=== PATIENT | female | born 1960 | race Caucasian/White ===

== ENCOUNTER 2020-09-09 16:04 | Outpatient (CLI) | payer BC, MEDICARE, SELFPAY | END 2020-09-09 16:05 | disposition home or self-care (01) | LOC: ANHCOVIDVC 16:04 | PROVIDERS: PCP Family Medicine; Visit Provider Family Medicine | DX: Z23 Encounter for immunization (principal) | CPT/HCPCS: 0001A; 91300 ==

== ENCOUNTER 2020-09-30 15:57 | Outpatient (CLI) | payer BC, MEDICARE, SELFPAY | END 2020-09-30 15:58 | disposition home or self-care (01) | LOC: ANHCOVIDVC 15:58 | PROVIDERS: PCP Family Medicine; Visit Provider Family Medicine | DX: Z23 Encounter for immunization (principal) | CPT/HCPCS: 0002A; 91300 ==

== ENCOUNTER 2021-09-03 16:13 | Outpatient (CLI) | payer BC, MEDICARE, SELFPAY ==
--- NOTE | ~2021-09-03 | US_ITS ---
EXAMINATION: US renal BI DATE: 09/03/2021 16:59 INDICATION: Stage III B, chronic kidney disease TECHNIQUE: Multiple ultrasound grayscale images of the kidneys were obtained. COMPARISON: None. FINDINGS: The right kidney measures 10.0 x 3.8 x 5.3 cm. The left kidney measures 9.1 x 4.7 x 5.3 cm. The kidne ys demonstrate normal echogenicity. There is no hydronephrosis in either kidney. No stones identifie d. The bladder is normal. IMPRESSION: 1. Normal kidneys without hydronephrosis. Reviewed, dictated and finalized at location A. ER CONSULTANT
== END 2021-09-03 16:14 | disposition home or self-care (01) ==
PROVIDERS: PCP Family Medicine; Visit Provider Internal Medicine Nephrology
DX: N18.32 Chronic kidney disease, stage 3b (principal)
CPT/HCPCS: 76775

== ENCOUNTER 2023-03-10 08:48 | Outpatient (CLI) | payer MEDICARE, SELFPAY ==
[2023-03-10 09:52] LABS: Basophils Percent Auto 0.3 % (0.2-1.2); Eosinophils Absolute Auto 0.1 K/mm3 (0-0.3); Eosinophils Percent Auto 1.8 % (0-4.4); Hematocrit 36.5 % (37.0-47.0); Hemoglobin 11.6 g/dL (12.0-15.0); Immature Granulocyte Absolute 0.02 K/mm3 (0.00-0.031); Immature Granulocyte Percent A 0.3 % (0-0.5); Lymphocytes Absolute Auto 0.87 K/mm3 (0.9-3.2); Lymphocytes Percent Auto 11.2 % (18.3-44.2); Mean Corpuscular HGB Conc 31.8 g/dl (32-36); Mean Corpuscular Hemoglobin 31.4 pg (26-34); Mean Corpuscular Volume 98.6 fl (80-100); Mean Platelet Volume 10.5 fl (7.4-10.4); Monocytes Percent Auto 12.6 % (2.6-8.5); Neutrophils Absolute Auto 5.7 K/mm3 (1.3-6.7); Neutrophils Percent Auto 73.8 % (45.5-73.1); Platelet Count Result 175 k/mm3 (150-375); Red Cell Distribution Width 13.6 % (11.5-14.5); White Blood Count 7.8 K/mm3 (4.5-10.0)
[2023-03-10 10:06] LABS: Alanine Aminotransferase 19 U/L (6-35); Albumin Level 4.4 g/dL (3.5-5.1); Alkaline Phosphatase 68 U/L (38-126); Anion Gap 6 mmol/L (8-16); Aspartate Amino Transferase 28 U/L (14-36); Bilirubin,Total 0.5 mg/dL (0.2-1.3); Blood Urea Nitrogen 14 mg/dL (7-17); Calcium 9.2 mg/dL (8.4-10.2); Carbon Dioxide 32 mmol/L (22-30); Chloride 101 mmol/L (98-107); Cholesterol 189 mg/dL (0-200); Estimated Glomerular Filt Rate 50; Glucose 98 mg/dL (65-110); HDL Direct 60 mg/dL; Sodium 139 mmol/L (137-145); Triglycerides 80 mg/dL (<150)
[2023-03-10 10:17] LABS: LDL Cholesterol Direct 86 mg/dL
[2023-03-10 10:28] LABS: Iron 53 ug/dL (37-170)
[2023-03-10 10:38] LABS: Percent Iron Saturation 14 % (20-50)
[2023-03-10 10:53] LABS: Appearance Urine Clear (Clear); Bacteria Urine None Seen /hpf; Bilirubin Urine Negative (Negative); Blood Urine Negative (Negative); Color Urine Yellow (Yellow); Glucose Urine UA Negative (Negative); Ketones Urine Negative (Negative); Leukocyte Esterase Ur 2+ LEU/UL (NEGATIVE); Need Manual Microscopic Reviewed; Nitrate Urine Negative (Negative); Non Pathogenic Casts 0-2; Protein Urine Negative (Negative); RBC Urine 0-2 /hpf (0-2); Specific Grav Ur 1.007 (1.001-1.035); Squamous Epithelial Cell Urine None seen /hpf (Few); Urobilinogen Urine 0.2 mg/dL (<2.0); WBC Urine 0-5 /hpf (0-3); pH Urine 6.5 (5.0-9.0)
[2023-03-10 10:57] LABS: Add Urine Microscopic? YES
[2023-03-10 11:14] LABS: Folic Acid > 20.0 ng/mL (2.76->20); Free T4 Free Thyroxine 1.29 ng/mL (0.78-2.19)
== END 2023-03-10 08:49 | disposition home or self-care (01) ==
PROVIDERS: PCP Family Medicine; Visit Provider Family Medicine
DX: N18.9 Chronic kidney disease, unspecified (principal); D63.1 Anemia in chronic kidney disease; E03.9 Hypothyroidism, unspecified; E78.2 Mixed hyperlipidemia; I10 Essential (primary) hypertension
CPT/HCPCS: 36415; 80053; 80061; 81001; 82607; 82728; 82746; 83540; 83550; 84439; 84443; 85025

== ENCOUNTER 2023-09-11 02:01 | Inpatient (IN) | payer MEDICARE, SELFPAY ==
[2023-09-11] VITALS (82 sets, daily range): BP systolic 93–156; BP diastolic 54–105; PULSE 59–129; RESP 15–31; TEMP 36.2–37.2; O2SAT 79–100; BMI 41.1; BMI 41.3
--- NOTE | ~2023-09-11 | XR_ITS ---
Portable chest x-ray Comparison: 02/07/2019 Clinical History: Dyspnea Findings: There is extensive groundglass pulmonary disease, with relative sparing of the lung apices . No definite pleural effusion. Cardiomediastinal silhouette is stable, enlarged. Bones and soft tis sues are unremarkable. Impression: Extensive groundglass pulmonary disease. Correlate for infection or pulmonary edema. Stable cardiomegaly, status post probable CABG. Reviewed, dictated and finalized at location . Impression: Extensive groundglass pulmonary disease. Correlate for infection or pulmonary e eduardo. Stable cardiomegaly, status post probable CABG.
--- NOTE | ~2023-09-11 | CT_ITS ---
Clinical Indication: Dyspnea CT Scan of the Chest with Contrast: Technique: Contiguous sections were acquired throughout the chest after intravenous administration of 100 cc of Omnipaque 350. Dose reduction technique was used on this scan by utilizing automated expos ure control and iterative reconstruction technique. The dose-length product (DLP) was 1062.98 mGy-cm. Findings: There is no evidence of any significant mediastinal, hilar or axillary lymphadenopathy. There is no f illing defect in the pulmonary arterial tree to suggest pulmonary embolus. There is no evidence of ao rtic dissection or aneurysm. There is cardiomegaly, with left atrial enlargement. No pericardial effusion. Minimal bilateral pleural effusions are present. There is extensive bilateral pulmonary consolidation, throughout both lungs, with relative sparing of the apices. Images through the upper abdomen reveal small nonobstructing left renal stones. Impression: No evidence of pulmonary embolus, aortic dissection, or aortic aneurysm. Extensive bilateral pulmonary consolidation. Correlate for severe pulmonary edema, diffuse pneumonia, ARDS. Minimal bilateral pleural effusions. Cardiomegaly. Reviewed, dictated and finalized at location . Impression: No evidence of pulmonary embolus, aortic dissection, or aortic aneurysm. Extensive bilateral pulmonary consolidation. Correlate for severe pulmonary bernadine ma, diffuse pneumonia, ARDS. Minimal bilateral pleural effusions. Cardiomegaly.
--- NOTE | 2023-09-11 02:16 | ECG_ITS ---
Measurements Intervals [place] Rate: 105 P: UT: 0 QRS: -11 QRSD: 110 T: 146 QT: 334 QTc: 442 Interpretive Statements ATRIAL FIBRILLATION WITH RAPID VENTRICULAR RESPONSE BORDERLINE R WAVE PROGRESSION, ANTERIOR LEADS LEFT VENTRICULAR HYPERTROPHY WITH ST-T CHANGE BORDERLINE T WAVE ABNORMALITY- LATERAL LEADS BASELINE ARTIFACT- I, II, III, AVR, AVL, AVF ABNORMAL ECG NO PREVIOUS ECG AVAILABLE FOR COMPARISON Electronically Signed On 09-11-2023 6:38:46 CDT by Hiren Ross D.O.
[2023-09-11 02:31] LABS: Basophils Percent Auto 0.2 % (0.2-1.2); Eosinophils Absolute Auto 0.1 K/mm3 (0-0.3); Eosinophils Percent Auto 0.3 % (0-4.4); Hematocrit 34.8 % (37.0-47.0); Hemoglobin 10.9 g/dL (12.0-15.0); Immature Granulocyte Absolute 0.07 K/mm3 (0.00-0.031); Immature Granulocyte Percent A 0.5 % (0-0.5); Lymphocytes Absolute Auto 0.98 K/mm3 (0.9-3.2); Lymphocytes Percent Auto 6.3 % (18.3-44.2); Mean Corpuscular HGB Conc 31.3 g/dl (32-36); Mean Corpuscular Hemoglobin 29.7 pg (26-34); Mean Corpuscular Volume 94.8 fl (80-100); Mean Platelet Volume 10.9 fl (7.4-10.4); Monocytes Absolute Auto 1.4 K/mm3 (0.1-0.6); Monocytes Percent Auto 9.2 % (2.6-8.5); Neutrophils Percent Auto 83.5 % (45.5-73.1); Platelet Count Result 206 k/mm3 (150-375); Red Blood Count 3.67 M/mm3 (4.2-5.4); Red Cell Distribution Width 14.4 % (11.5-14.5); White Blood Count 15.5 K/mm3 (4.5-10.0)
[2023-09-11 02:42] LABS: INR 1.8; Prothrombin Time 22.4 Seconds (11.1-14.7)
[2023-09-11 02:43] LABS: Partial Thromboplastin Time 49.3 Seconds (22.3-36.8)
[2023-09-11 02:46] LABS: Alveolar/Arterial O2 Gradient 150.3 mmHg; Base Excess ABG 0.4 mEq/l (+/-2.0); Fractional Inspired Oxygen 36 %; HCO3 ABG 24.8 mEq/l (22.0-26.0); Oxygen Content ABG 14.5 %vol (16.0-22.0); Oxygen Saturation ABG 91.9 % (95.0-100.0); Oxyhemoglobin 88.7 % THb (90.0-100.0); PCO2 ABG 39.1 mmHg (35.0-45.0); PO2 FiO2 Ratio Arterial Blood 1.69 %; Total Hemoglobin 11.6 g/dL (12.0-18.0)
[2023-09-11 02:46] LABS: Alanine Aminotransferase 19 U/L (6-35); Albumin Level 3.5 g/dL (3.5-5.1); Alkaline Phosphatase 61 U/L (38-126); Anion Gap 8 mmol/L (8-16); Aspartate Amino Transferase 35 U/L (14-36); Bilirubin,Total 0.7 mg/dL (0.2-1.3); Blood Urea Nitrogen 27 mg/dL (7-17); Calcium 7.9 mg/dL (8.4-10.2); Carbon Dioxide 24 mmol/L (22-30); Chloride 109 mmol/L (98-107); Estimated CRCL calculation 38 ml/min; Estimated Glomerular Filt Rate 33; Glucose 122 mg/dL (65-110); Potassium 3.8 mmol/L (3.4-5.0); Sodium 141 mmol/L (137-145)
[2023-09-11 02:47] LABS: Lactic Acid Reflex 1.8 mmol/L (0.7-2.0); Lipase 46 U/L (23-300); Magnesium 1.6 mg/dL (1.6-2.3)
[2023-09-11 02:47] LABS: Device NASAL CANNULA; Modified Allen's Test Pass; Site Drawn RIGHT RADIAL
--- NOTE | 2023-09-11 02:50 | PC.NURSE ---
Unable to get accurate O2 saturation with finger pulse ox, forehead pulse ox, and ear lobe pulse ox. Respiratory stated pt O2 from blood gas was 91%. Respiratory placing pt on high flow nasal cannula at 8L.
[2023-09-11 02:55] LABS: NT Pro B Type Natriuretic Pept 6060 pg/mL (19.9-100)
[2023-09-11 02:59] LABS: Troponin I 0.015 ng/mL (0.000-0.034)
[2023-09-11 03:07] LABS: Influenza A QL RT-PCR Negative (Negative); Influenza B QL RT-PCR Negative (Negative); RSV RNA, RT-PCR Negative (Negative); SARS-CoV-2 RNA PCR Negative (Negative)
--- NOTE | 2023-09-11 04:10 | ED.GENADULT ---
HPI - General Adult General Chief complaint: Arrhythmia/Palpitations Stated complaint: SOB, PALPITATIONS History of Present Illness HPI narrative: Patient is a 63-year-old female who presents emergency department chief complaint of shortness of breath and palpitations. Patient reports she has intermittent episodes of atrial fibrillation report in the past is currently on anticoagulant and reports that today she was at the grocery store and felt very lightheaded and short of breath patient states she sat down in her car and symptoms improved. The patient went home and continued to have episodes of shortness of breath and lightheadedness. The patient reports no actual syncopal episode the patient reports she is not on home oxygen. Related Data Allergies Allergy/AdvReac Type Severity Reaction Status Date / Time No Known Allergies Allergy Verified 04/13/23 13:20 Review of Systems Review of Systems: A 10 system review of systems was completed on the patient and is negative except for what is stated in the HPI. Nursing and ancillary documentation was reviewed. [facility] Past Medical History Medical History Acute non-recurrent maxillary sinusitis Anemia in chronic kidney disease hemoglobin 11.0 with iron 52, folic acid 24, and vitamin B12 520 on 08/02/2021. Hemoglobin 11.6 with hematocrit 36.5, iron 53 with 14% saturation and ferritin 34.6 with vitamin B12 823 and folic acid greater than 20 on 03/10/2023. At moderate risk for fall (~2022) Breast cancer screening by mammogram Chronic kidney disease (CKD) stage G3b/A1, moderately decreased glomerular filtration rate (GFR) between 30-44 mL/min/1.73 square meter and albuminuria creatinine ratio less than 30 mg/g BUN 14, creatinine 1.10 with GFR 50 on 03/10/2023. Colon cancer screening Cutaneous candidiasis Inflamed skin tag (~12/09/21) right upper anterior chest under brawl strap Left knee DJD Mitral valve regurgitation (~01/2022) moderate mitral valve regurgitation on echocardiogram 2021 through medical radiation therapist with plans to recheck annually. Morbid obesity with BMI of 40.0-44.9, adult Obstructive sleep apnea Paroxysmal atrial fibrillation Psoriasis of scalp Right knee DJD Seasonal allergic rhinitis UTI (urinary tract infection) Surgical History Surgical History H/O arthroscopy of right knee [address] Sellers History of partial hysterectomy [address] Varma History of tonsillectomy [address] Waters Hx of section 1988 S/P angioplasty with stent [address] Gonsales S/P triple vessel bypass [address] 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 HEAD: Normocephalic, atraumatic. EYES: PERRLA and EOMI. ENT: Nares clear, no rhinorrhea or epistaxis. Mucous membranes moist. NECK: Supple. CHEST: Clear to auscultation. No respiratory distress. HEART: Regular rate and rhythm. No murmur heard. Normal peripheral pulses. ABDOMEN: Soft, nontender, nondistended, normal active bowel sounds. EXTREMITIES: Normal range of motion. No edema. SKIN: Warm, dry, no rash. JOE
[2023-09-11] MEDS: methylPREDNISolone SOD SUCC 125 MG VIAL IV PUSH (05:18)
[2023-09-11 05:28] LABS: Appearance Urine Clear (Clear); Bacteria Urine None Seen /hpf; Bilirubin Urine Negative (Negative); Blood Urine Negative (Negative); Color Urine Yellow (Yellow); Glucose Urine UA Negative (Negative); Ketones Urine Negative (Negative); Leukocyte Esterase Ur Trace LEU/UL (Negative); Nitrate Urine Negative (Negative); Non Pathogenic Casts 0-2; Protein Urine 1+ mg/dL (Negative); RBC Urine 0-2 /hpf (0-2); Squamous Epithelial Cell Urine None Seen /hpf (Few); pH Urine 5.5 (5.0-9.0)
[2023-09-11 05:30] LABS: Add Urine Microscopic? YES
[2023-09-11] MEDS: FUROSEMIDE INJ 40 MG/4 ML VIAL IV PUSH ×2 (05:36→18:13)
[2023-09-11] MEDS: dilTIAZem HCl INJ 25 MG/5 ML VIAL 10 MG IV PUSH (05:36)
[2023-09-11] MEDS: HYDROcodone/acetaminophen (*CRX) 5-325 MG TABLET 1 TAB PO (05:36)
[2023-09-11] MEDS: DOXYCYCLINE 100 MG/NS 100 ML 100 MG/100 ML BAG IVPB ×2 (05:55→18:50)
[2023-09-11 06:31] LABS: Troponin I 0.023 ng/mL (0.000-0.034)
--- NOTE | 2023-09-11 07:15 | PC.NURSE ---
Report given to AMOS Huizar with no questions at this time.
[2023-09-11 10:41] LABS: Troponin I 0.024 ng/mL (0.000-0.034)
--- NOTE | 2023-09-11 11:34 | PM.IMHP ---
H&P: HPI History of Present Illness Date/Time: 09/11/23 11:34 Chief Complaint: Patient brought to the ER for evaluation with complaints shortness of breath and palpitations Narrative: She has the pleasant morbidly obese 63 years old white female with the AFib and chronic medical issues who has had intermittent episodes of atrial fibrillation in the past. She is currently on anticoagulation for AFib. Diagnosis store and felt dizzy and lightheaded and shortness of breath so she sat down in her car and symptoms improved. She went home and continued to have those symptoms which got worse. Her and her got concerned and brought her to the ER for evaluation. Workup was done which showed AFib with RVR with patient was given IV diltiazem push and her heart rate stabilized. She was started on IV and being admitted for tele monitoring, IV antibiotics and medical management and further workup. Review of Systems Review of Systems: 14 systems were reviewed with pertinent positives and negatives per HPI. Except as documented in the HPI/progress notes, all other systems were reviewed and are negative. All systems reviewed & are unremarkable except as noted in HPI and below PMFSH Past Medical History Medical History Acute non-recurrent maxillary sinusitis Anemia in chronic kidney disease hemoglobin 11.0 with iron 52, folic acid 24, and vitamin B12 520 on 08/02/2021. Hemoglobin 11.6 with hematocrit 36.5, iron 53 with 14% saturation and ferritin 34.6 with vitamin B12 823 and folic acid greater than 20 on 03/10/2023. At moderate risk for fall (~2022) Breast cancer screening by mammogram Chronic kidney disease (CKD) stage G3b/A1, moderately decreased glomerular filtration rate (GFR) between 30-44 mL/min/1.73 square meter and albuminuria creatinine ratio less than 30 mg/g BUN 14, creatinine 1.10 with GFR 50 on 03/10/2023. Colon cancer screening Cutaneous candidiasis Inflamed skin tag (~12/09/21) right upper anterior chest under brawl strap Left knee DJD Mitral valve regurgitation (~01/2022) moderate mitral valve regurgitation on echocardiogram 2021 through electrician maintenance with plans to recheck annually. Morbid obesity with BMI of 40.0-44.9, adult Obstructive sleep apnea Paroxysmal atrial fibrillation Psoriasis of scalp Right knee DJD Seasonal allergic rhinitis UTI (urinary tract infection) Surgical History Surgical History H/O arthroscopy of right knee [address] Sellers History of partial hysterectomy [address] Varma History of tonsillectomy [address] Waters Hx of section 1988 S/P angioplasty with stent [address] Gonsales S/P triple vessel bypass [address] 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
[2023-09-11 12:33] LABS: Iron 43 ug/dL (37-170)
[2023-09-11 12:42] LABS: Percent Iron Saturation 14 % (20-50)
[2023-09-11] MEDS: methylPREDNISolone SOD SUCC 125 MG VIAL 60 MG IV PUSH ×2 (14:45→22:21)
[2023-09-11] MEDS: IRON SUCROSE COMPLEX 300 MG in SODIUM CHLORIDE 0.9% IV 250 ML 177 MG IVPB (16:32)
[2023-09-11] MEDS: RIVAROXABAN 20 MG TABLET PO (18:05)
[2023-09-11] MEDS: oxyCODONE/ACETAMINOPHEN (*CRX) 5-325 MG TABLET 1 TABLET PO (19:55)
[2023-09-11] MEDS: oxyCODONE HCL (*CRX) 2.5 MG TAB IR PO (19:55)
--- NOTE | 2023-09-11 21:08 | ADMGEN ---
This patient, Danelle Sommers, was admitted to IMU Room 210-01. Patient/family oriented to hospital policies and general routines including ID bracelet, bed and alarms, visiting hours, pain management, procedures, bathroom and other care routines, personal items, smoking policy, room service/diet, and visiting hours. Information on how to activate the Rapid Response Team has been discussed. Patient/Family are encouraged to report perceived risks to care and to ask questions if they do not understand what they are told or what they should do.
[2023-09-11] MEDS: FLUTICASONE PROPIONATE 0.05% NA SPR 16 GM BTL (*BKC) 1 SPRAY NASAL (22:21)
[2023-09-11] MEDS: SACUBITRIL/VALSARTAN 97-103 MG TABLET 1 TAB PO (22:21)
[2023-09-11] MEDS: carvediloL 12.5 MG TABLET PO (22:22)
[2023-09-11] MEDS: FLUTICASONE/SALMETEROL 115-21 MCG INHALER 1 PUFF 2 PUFF INHALATION (22:25)
[2023-09-12] VITALS (26 sets, daily range): BP systolic 97–112; BP diastolic 53–62; PULSE 63–106; RESP 13–22; TEMP 35.6–36.9; O2SAT 88–98
[2023-09-12] MEDS: ZOLPIDEM TARTRATE (*CRX) 5 MG TABLET 10 MG PO ×2 (00:17→22:15)
[2023-09-12] MEDS: methylPREDNISolone SOD SUCC 125 MG VIAL 60 MG IV PUSH ×3 (05:03→20:54)
[2023-09-12] MEDS: FUROSEMIDE INJ 40 MG/4 ML VIAL IV PUSH ×2 (05:03→17:12)
[2023-09-12] MEDS: DOXYCYCLINE 100 MG/NS 100 ML 100 MG/100 ML BAG IVPB ×2 (05:04→17:12)
[2023-09-12] MEDS: LEVOTHYROXINE SODIUM 88 MCG TABLET PO (05:04)
[2023-09-12 05:08] LABS: Basophils Percent Auto 0.1 % (0.2-1.2); Hematocrit 30.1 % (37.0-47.0); Hemoglobin 9.5 g/dL (12.0-15.0); Immature Granulocyte Absolute 0.19 K/mm3 (0.00-0.031); Immature Granulocyte Percent A 1.7 % (0-0.5); Lymphocytes Absolute Auto 0.38 K/mm3 (0.9-3.2); Lymphocytes Percent Auto 3.4 % (18.3-44.2); Mean Corpuscular HGB Conc 31.6 g/dl (32-36); Mean Corpuscular Hemoglobin 29.8 pg (26-34); Mean Corpuscular Volume 94.4 fl (80-100); Mean Platelet Volume 10.9 fl (7.4-10.4); Monocytes Absolute Auto 0.3 K/mm3 (0.1-0.6); Monocytes Percent Auto 2.2 % (2.6-8.5); Neutrophils Absolute Auto 10.3 K/mm3 (1.3-6.7); Neutrophils Percent Auto 92.6 % (45.5-73.1); Platelet Count Result 158 k/mm3 (150-375); Red Blood Count 3.19 M/mm3 (4.2-5.4); Red Cell Distribution Width 14.2 % (11.5-14.5); White Blood Count 11.1 K/mm3 (4.5-10.0)
[2023-09-12 05:32] LABS: Anion Gap 5 mmol/L (8-16); Blood Urea Nitrogen 32 mg/dL (7-17); Carbon Dioxide 29 mmol/L (22-30); Chloride 103 mmol/L (98-107); Estimated CRCL calculation 47 ml/min; Estimated Glomerular Filt Rate 42; Glucose 146 mg/dL (65-110); Magnesium 1.7 mg/dL (1.6-2.3); Phosphorus 3.1 mg/dL (2.5-4.5); Potassium 4.1 mmol/L (3.4-5.0); Sodium 137 mmol/L (137-145)
[2023-09-12] MEDS: oxyCODONE/ACETAMINOPHEN (*CRX) 5-325 MG TABLET 1 TABLET PO ×3 (05:49→23:47)
[2023-09-12] MEDS: oxyCODONE HCL (*CRX) 2.5 MG TAB IR PO ×3 (05:50→23:47)
--- NOTE | 2023-09-12 06:00 | ECHO_ITS ---
Patient Info Name: Danelle Sommers Age: 63 years : 1960 Gender: Female Ht: 63 in Wt: 233 lbs BSA: 2.22 m2 HR: 64 bpm BP: 105 / 62 mmHg Heart Rhythm: Sinus Rhythm Technical Quality: Fair Exam Date: 09/12/2023 7:43 AM Exam Location: Echo Lab Patient Status: Inpatient Admit Date: 09/11/2023 Staff Ordering Physician: Kemar Braga MD Kiln Placer: Mily England RDCS Attending Provider: Jesse Carey MD Referring Physician: Omi LINK; Exam Type: CA echo dop color flow w con Study Info Indications - CHF R06.00 - Dyspnea, unspecified Complete two-dimensional, color flow and Doppler transthoracic echocardiogram is performed with contrast to opacify the left ventricle and to improve the deliniation of the left ventricle endocardial borders. Contrast/Agitated Saline Contrast/Ag. Saline: Definity Amount: 2.00 ml Administered By: Mily England RDCS Existing IV Access: Yes IV Access Condition: patent with no signs of infiltration Summary 1. Left ventricular chamber dimension is severely enlarged. 2. Left ventricular systolic function is at lower limits of normal, estimated at 50-55%. 3. Right ventricular systolic function is normal. 4. Left atrial chamber dimension is severely enlarged. 5. Right atrial chamber dimension is severely enlarged. 6. There is mild aortic valve regurgitation. 7. There is moderate mitral valve regurgitation. 8. There is moderate tricuspid valve regurgitation, which may be underestimated due to the eccentricity of the jet. Left Ventricle Left ventricular chamber dimension is severely enlarged. Left ventricular systolic function is at lower limits of normal, estimated at 50-55%. There is no increased left ventricular wall thickness. Left ventricular septal wall motion is abnormal with septal motion related to a post-operative state. Right Ventricle Right ventricular chamber dimension is normal. Right ventricular systolic function is normal. Left Atria Left atrial chamber dimension is severely enlarged. Right Atria Right atrial chamber dimension is severely enlarged. Atrial Septum Intact interatrial septum visualized by color flow imaging. Aortic Valve The aortic valve is probable trileaflet. There is no aortic valve stenosis. There is mild aortic valve regurgitation. There is moderate aortic valve calcification. Pulmonic Valve The pulmonic valve is not well visualized. There is trace pulmonic regurgitation. Mitral Valve There is moderate mitral valve regurgitation. The mitral valve annulus is moderately calcified. Tricuspid Valve There is moderate tricuspid valve regurgitation, which may be underestimated due to the eccentricity of the jet. Pericardium/Pleural There is no pericardial effusion. Inferior Vena Cava Normal inferior vena cava with >50% collapse upon inspiration consistent with normal right atrial pressure, 3 mmHg. Aorta The aortic root size at the sinus of Valsalva is normal. Left Ventricular Outflow Tract Name Value Normal LVOT 2D LVOT Diameter 2.06 cm LVOT Doppler LVOT Peak Gradient 2 mmHg LVOT Mean Gradient
[2023-09-12] MEDS: PERFLUTREN LIPID MICROSPHERES 1.5 ML VIAL DILUTED TO 10 ML TOTAL VOLUME IV PUSH (08:15)
[2023-09-12] MEDS: FLUTICASONE/SALMETEROL 115-21 MCG INHALER 1 PUFF 2 PUFF INHALATION ×2 (08:49→21:05)
[2023-09-12] MEDS: IRON SUCROSE COMPLEX 300 MG in SODIUM CHLORIDE 0.9% IV 250 ML 177 MG IVPB (09:03)
[2023-09-12] MEDS: POTASSIUM CHLORIDE 20 MEQ ER TABLET PO (09:03)
[2023-09-12] MEDS: SPIRONOLACTONE 25 MG TABLET PO (09:03)
[2023-09-12] MEDS: MULTIVITAMINS THERAPEUTIC TAB (*BKC) 1 TABLET PO (09:03)
[2023-09-12] MEDS: carvediloL 12.5 MG TABLET PO ×2 (09:03→20:53)
[2023-09-12] MEDS: CHOLECALCIFEROL 1,000 UNITS TABLET 1000 UNITS PO (09:04)
[2023-09-12] MEDS: ESCITALOPRAM OXALATE 10 MG TABLET PO (09:04)
[2023-09-12] MEDS: ATORVASTATIN 40 MG TABLET 80 MG PO (09:04)
[2023-09-12] MEDS: AMIODARONE HCL 200 MG TABLET PO (09:04)
[2023-09-12] MEDS: SACUBITRIL/VALSARTAN 97-103 MG TABLET 1 TAB PO ×2 (09:04→20:53)
[2023-09-12] MEDS: CYANOCOBALAMIN 1,000 MCG TABLET 1000 MCG PO (09:04)
[2023-09-12] MEDS: LORATADINE 10 MG TABLET PO (09:04)
--- NOTE | 2023-09-12 09:15 | IVDEFINITY ---
Prior to administration of IV Definity the patient was educated on the risks and benefits of the imaging enhancing agent including potential adverse side effects. The patient verbalized understanding. Allergies were verified. No exclusion criteria were identified and at least one of the following inclusion criteria were met: 1) physician request, 2) patient technically difficult to image (per the [place] Society of Echocardiography guidelines of two or more segments not discernable within the apical view), or 3) questionable left ventricular function. ?
--- NOTE | 2023-09-12 14:30 | PM.IMPN ---
Progress Note: A&P Assessment and Plan (1) Acute and chronic respiratory failure with hypoxia: Code(s): J96.21 - Acute and chronic respiratory failure with hypoxia Status: Acute (2) Pneumonia: Code(s): J18.9 - Pneumonia, unspecified organism Status: Acute Plan 63-year-old female with past medical history of atrial fibrillation presented with worsening shortness of breaths. Was found to be in AFib with RVR. 1. Acute on chronic respiratory failure: Continue with O2 support Follow blood cultures Continue with ceftriaxone and doxycycline Continue with Lasix Continue with Solu-Medrol Follow-up echocardiogram 2. AFib with RVR: Continue with amiodarone, Coreg Continue with Xarelto 3. Chronic kidney disease: Stage IIIB Avoid nephrotoxins Recheck BMP in a.m. 4.Anemia of Chronic disease: IV iron for 3 days monitor H/H 5. Code status: Full 6. DVT prophylaxis: On Xarelto next 7. Disposition: Pending improvement Time Spent With Patient Time with patient: 15 - 25 minutes Subjective Date/time seen: 09/12/23 14:30 Interval history: Continues to be on O2 support Review of Systems Review of Systems: 14 systems were reviewed with pertinent positives and negatives per HPI. Except as documented in the HPI/progress notes, all other systems were reviewed and are negative. Exam Narrative: General physical exam: Morbidly obese, lying in bed, alert awake oriented x3, appears to be tired, weak and fatigued with some shortness of breath Head/eyes: Atraumatic, EOMI, PERRLA ENT: Moist mucous membranes, nasal passages clear Neck: Supple, full range of motion, trachea midline CVS: S1 + S2, irregularly irregular rate and rhythm, no murmurs Respiratory: Bilaterally decreased air entry in both lung mina, mild B/L crackles, symmetric chest expansion, + bilateral scattered rhonchi Abdomen: Soft, non-tender, bowel sounds +ve, no organomegaly Extremities: No clubbing, no cyanosis, no edema, no calf tenderness Musculoskeletal: Moves all, decreased range of motion, no muscle spasms Skin: Warm, dry, no jaundice, no cyanosis Neurological: Awake, alert, oriented x 3, cranial nerves II-XII intact, no focal neurological deficits Psychiatric: Normal mood, non suicidal Objective Data Vital Signs Vital Signs: Vital Signs - 24 hr 09/11/23 14:34 09/11/23 14:45 09/11/23 14:46 Temperature Pulse Rate 66 66 62 Respiratory Rate 17 18 20 Blood Pressure 128/64 Pulse Oximetry 99 99 99 Oxygen Delivery Oxygen Flow Rate 09/11/23 15:01 09/11/23 15:23 09/11/23 15:30 Temperature Pulse Rate 62 60 59 L Respiratory Rate 17 16 17 Blood Pressure 102/64 102/63 Pulse Oximetry 98 99 99 Oxygen Delivery Oxygen Flow Rate 09/11/23 15:31 09/11/23 18:07 09/11/23 19:33 Temperature Pulse Rate 60 73 70 Respiratory Rate 16 16 20 Blood Pressure 108/66 111/64 Pulse Oximetry 95 95 Oxygen Delivery Oxygen Flow Rate 09/11/23 21:05 09/11/23 22:22 09/11/23 22:25 Temperature 97.1 F L Pulse Rate 79 84 85 Respiratory Rate 20 16 Blood Pressure 113/69 Pulse Oximetry 100 100 Oxygen Delivery Nasal Cannula Oxygen Flow Rate 4 09/11/23 21:30 09/11/23 21:00 09/11/23 22:00 Temperature Pulse Rate 68 67 66 Respiratory Rate 22 H Blood Pressure Pulse Oximetry 100 Oxygen Delivery High Flow Therapy with Na Oxygen Flow Rate 4 09/11/23 23:33 09/12/23 00:00 09/12/23 00:00 Temperature 97.3 F L Pulse Rate 62 78 78 Respiratory Rate 20 20 Blood Pressure 94/57 L Pulse Oximetry 97 97 Oxygen Delivery High Flow Therapy with Na Oxygen Flow Rate 4 09/12/23 03:49 09/12/23 02:00 09/12/23 04:00 Temperature 97.1 F L Pulse Rate 64 68 68 Respiratory Rate 18 Blood Pressure 105/62 Pulse Oximetry 97 Oxygen Delivery Oxygen Flow Rate 09/12/23 04:00 09/12/23 05:25 09/12/23 07:41 Temperature 98.5 F Pulse Rate 68 64 74 Respiratory R
[2023-09-12] MEDS: RIVAROXABAN 20 MG TABLET PO (17:11)
--- NOTE | 2023-09-12 18:10 | PC.NURSE ---
This patient, Danelle Sommers, was transferred to [ [facility]] on 09/12/23 at 1810. Personal belongings sent with patient. Report given to [AMOS Galarza @ [phone] ]. Appropriate documentation sent with patient.
--- NOTE | 2023-09-12 18:28 | PC.NURSE ---
This patient, Danelle Sommers, was received from [IMU] on 09/12/23 at 1820 Patient/family oriented to unit policies and routines. Report from Carmen
[2023-09-13] VITALS (14 sets, daily range): BP systolic 100–103; BP diastolic 40–55; PULSE 64–84; RESP 14–18; TEMP 35.7–36.7; O2SAT 92–94
[2023-09-13] MEDS: methylPREDNISolone SOD SUCC 125 MG VIAL 60 MG IV PUSH ×3 (05:44→22:06)
[2023-09-13] MEDS: LEVOTHYROXINE SODIUM 88 MCG TABLET PO (05:44)
[2023-09-13] MEDS: DOXYCYCLINE 100 MG/NS 100 ML 100 MG/100 ML BAG IVPB ×2 (05:45→17:15)
[2023-09-13] MEDS: FUROSEMIDE INJ 40 MG/4 ML VIAL IV PUSH ×2 (06:45→16:00)
[2023-09-13 07:28] LABS: Basophils Percent Auto 0.1 % (0.2-1.2); Hematocrit 32.6 % (37.0-47.0); Hemoglobin 10.2 g/dL (12.0-15.0); Immature Granulocyte Absolute 0.18 K/mm3 (0.00-0.031); Immature Granulocyte Percent A 1.3 % (0-0.5); Lymphocytes Absolute Auto 0.33 K/mm3 (0.9-3.2); Lymphocytes Percent Auto 2.4 % (18.3-44.2); Mean Corpuscular HGB Conc 31.3 g/dl (32-36); Mean Corpuscular Hemoglobin 29.7 pg (26-34); Mean Platelet Volume 10.7 fl (7.4-10.4); Monocytes Absolute Auto 0.3 K/mm3 (0.1-0.6); Monocytes Percent Auto 2.1 % (2.6-8.5); Neutrophils Absolute Auto 12.7 K/mm3 (1.3-6.7); Neutrophils Percent Auto 94.1 % (45.5-73.1); Nucleated Red Blood Cells Perc 0.1 % (0.0-0.2); Platelet Count Result 199 k/mm3 (150-375); Red Blood Count 3.43 M/mm3 (4.2-5.4); Red Cell Distribution Width 14.5 % (11.5-14.5); White Blood Count 13.5 K/mm3 (4.5-10.0)
[2023-09-13] MEDS: FLUTICASONE/SALMETEROL 115-21 MCG INHALER 1 PUFF 2 PUFF INHALATION ×2 (07:36→19:55)
[2023-09-13] MEDS: oxyCODONE/ACETAMINOPHEN (*CRX) 5-325 MG TABLET 1 TABLET PO ×3 (07:38→22:51)
[2023-09-13] MEDS: oxyCODONE HCL (*CRX) 2.5 MG TAB IR PO ×2 (07:39→15:57)
[2023-09-13 07:47] LABS: Anion Gap 6 mmol/L (8-16); Blood Urea Nitrogen 32 mg/dL (7-17); Carbon Dioxide 33 mmol/L (22-30); Chloride 101 mmol/L (98-107); Estimated CRCL calculation 47 ml/min; Estimated Glomerular Filt Rate 42; Glucose 151 mg/dL (65-110); Potassium 3.5 mmol/L (3.4-5.0); Sodium 140 mmol/L (137-145)
[2023-09-13] MEDS: POTASSIUM CHLORIDE 20 MEQ ER TABLET PO (08:17)
[2023-09-13] MEDS: LORATADINE 10 MG TABLET PO (08:17)
[2023-09-13] MEDS: AMIODARONE HCL 200 MG TABLET PO (08:17)
[2023-09-13] MEDS: CHOLECALCIFEROL 1,000 UNITS TABLET 1000 UNITS PO (08:18)
[2023-09-13] MEDS: SPIRONOLACTONE 25 MG TABLET PO (08:18)
[2023-09-13] MEDS: MULTIVITAMINS THERAPEUTIC TAB (*BKC) 1 TABLET PO (08:18)
[2023-09-13] MEDS: CYANOCOBALAMIN 1,000 MCG TABLET 1000 MCG PO (08:18)
[2023-09-13] MEDS: carvediloL 12.5 MG TABLET PO (08:18)
[2023-09-13] MEDS: ESCITALOPRAM OXALATE 10 MG TABLET PO (08:18)
[2023-09-13] MEDS: ATORVASTATIN 40 MG TABLET 80 MG PO (08:18)
[2023-09-13] MEDS: SACUBITRIL/VALSARTAN 97-103 MG TABLET 1 TAB PO (08:18)
[2023-09-13] MEDS: IRON SUCROSE COMPLEX 300 MG in SODIUM CHLORIDE 0.9% IV 250 ML 177 MG IVPB (09:20)
--- NOTE | 2023-09-13 12:04 | PM.IMPN ---
Progress Note: A&P Assessment and Plan (1) Acute and chronic respiratory failure with hypoxia: Code(s): J96.21 - Acute and chronic respiratory failure with hypoxia Status: Acute (2) Pneumonia: Code(s): J18.9 - Pneumonia, unspecified organism Status: Acute Plan 63-year-old female with past medical history of atrial fibrillation presented with worsening shortness of breaths. Was found to be in AFib with RVR. 1. Acute on chronic respiratory failure: Continue with O2 support to keep O2 sats greater than 92% Patient currently off O2 support will monitor closely Follow blood cultures Continue with ceftriaxone and doxycycline Continue with Lasix Continue with Solu-Medrol Echo with EF of 50-55% 2. AFib with RVR: Continue with amiodarone, Coreg Continue with Xarelto 3. Chronic kidney disease: Stage IIIB Avoid nephrotoxins Recheck BMP in a.m. 4.Anemia of Chronic disease: IV iron for 3 days monitor H/H 5. E coli UTI: Continue with ceftriaxone as mentioned above 6. Code status: Full 7. DVT prophylaxis: On Xarelto next 8. Disposition: Anticipate discharge in next 24-48 hours Time Spent With Patient Time with patient: 15 - 25 minutes Subjective Date/time seen: 09/13/23 12:04 Interval history: No acute events overnight, feeling better Review of Systems Review of Systems: 14 systems were reviewed with pertinent positives and negatives per HPI. Except as documented in the HPI/progress notes, all other systems were reviewed and are negative. Exam Narrative: General physical exam: Morbidly obese, lying in bed, alert awake oriented x3 Head/eyes: Atraumatic, EOMI, PERRLA ENT: Moist mucous membranes, nasal passages clear Neck: Supple, full range of motion, trachea midline CVS: S1 + S2, irregularly irregular rate and rhythm, no murmurs Respiratory: Bilaterally decreased air entry in both lung mina, mild B/L crackles, symmetric chest expansion, + bilateral scattered rhonchi Abdomen: Soft, non-tender, bowel sounds +ve, no organomegaly Extremities: No clubbing, no cyanosis, no edema, no calf tenderness Musculoskeletal: Moves all, decreased range of motion, no muscle spasms Skin: Warm, dry, no jaundice, no cyanosis Neurological: Awake, alert, oriented x 3, cranial nerves II-XII intact, no focal neurological deficits Psychiatric: Normal mood, non suicidal Objective Data Vital Signs Vital Signs: Vital Signs - 24 hr 09/12/23 14:00 09/12/23 15:23 09/12/23 16:00 Temperature 98.1 F Pulse Rate 69 69 70 Respiratory Rate 20 Blood Pressure 101/59 L Pulse Oximetry 94 Oxygen Delivery Oxygen Flow Rate 09/12/23 18:20 09/12/23 19:15 09/12/23 20:53 Temperature 96.9 F L Pulse Rate 81 68 Respiratory Rate 16 Blood Pressure 112/55 L Pulse Oximetry 93 95 Oxygen Delivery Nasal Cannula Oxygen Flow Rate 1 09/12/23 20:00 09/12/23 21:10 09/12/23 21:15 Temperature Pulse Rate 106 H Respiratory Rate Blood Pressure Pulse Oximetry 88 L 92 Oxygen Delivery Room Air Nasal Cannula Oxygen Flow Rate 1 09/12/23 21:05 09/12/23 23:47 09/13/23 00:00 Temperature 97.2 F L Pulse Rate 73 68 76 Respiratory Rate 13 Blood Pressure 105/55 L Pulse Oximetry 93 Oxygen Delivery Oxygen Flow Rate 09/13/23 04:00 09/13/23 05:57 09/13/23 07:48 Temperature 98.1 F Pulse Rate 64 65 Respiratory Rate 14 Blood Pressure 100/51 L Pulse Oximetry 93 93 Oxygen Delivery Nasal Cannula Oxygen Flow Rate 1 09/13/23 07:35 09/13/23 07:35 09/13/23 08:00 Temperature Pulse Rate 74 74 69 Respiratory Rate 18 18 Blood Pressure Pulse Oximetry 93 Oxygen Delivery Nasal Cannula Oxygen Flow Rate 2 09/13/23 08:17 09/13/23 08:18 Temperature Pulse Rate 69 69 Respiratory Rate Blood Pressure Pulse Oximetry Oxygen Delivery Oxygen Flow Rate Intake/Output Intake/Output: Intake & Output 09/10/23 09/11/23
[2023-09-13] MEDS: RIVAROXABAN 20 MG TABLET PO (16:00)
[2023-09-13] MEDS: FLUTICASONE PROPIONATE 0.05% NA SPR 16 GM BTL (*BKC) 2 SPRAY NASAL (22:05)
[2023-09-13] MEDS: ZOLPIDEM TARTRATE (*CRX) 5 MG TABLET 10 MG PO (22:51)
[2023-09-14] VITALS (7 sets, daily range): BP systolic 126; BP diastolic 76; PULSE 64–78; RESP 18; TEMP 36.2; O2SAT 94–97
[2023-09-14] MEDS: LEVOTHYROXINE SODIUM 88 MCG TABLET PO (04:51)
[2023-09-14] MEDS: FUROSEMIDE INJ 40 MG/4 ML VIAL IV PUSH (04:51)
[2023-09-14] MEDS: DOXYCYCLINE 100 MG/NS 100 ML 100 MG/100 ML BAG IVPB (04:51)
[2023-09-14] MEDS: methylPREDNISolone SOD SUCC 125 MG VIAL 60 MG IV PUSH (04:51)
[2023-09-14] MEDS: oxyCODONE/ACETAMINOPHEN (*CRX) 5-325 MG TABLET 1 TABLET PO ×2 (05:43→12:42)
[2023-09-14] MEDS: oxyCODONE HCL (*CRX) 2.5 MG TAB IR PO ×2 (05:43→12:41)
[2023-09-14 06:54] LABS: Basophils Percent Auto 0.2 % (0.2-1.2); Hemoglobin 10.7 g/dL (12.0-15.0); Immature Granulocyte Absolute 0.11 K/mm3 (0.00-0.031); Immature Granulocyte Percent A 0.9 % (0-0.5); Lymphocytes Absolute Auto 0.35 K/mm3 (0.9-3.2); Mean Corpuscular HGB Conc 31.5 g/dl (32-36); Mean Corpuscular Hemoglobin 29.3 pg (26-34); Mean Corpuscular Volume 93.2 fl (80-100); Mean Platelet Volume 10.8 fl (7.4-10.4); Monocytes Absolute Auto 0.3 K/mm3 (0.1-0.6); Monocytes Percent Auto 2.5 % (2.6-8.5); Neutrophils Absolute Auto 10.9 K/mm3 (1.3-6.7); Neutrophils Percent Auto 93.4 % (45.5-73.1); Nucleated Red Blood Cells Perc 0.4 % (0.0-0.2); Platelet Count Result 233 k/mm3 (150-375); Red Blood Count 3.65 M/mm3 (4.2-5.4); Red Cell Distribution Width 14.5 % (11.5-14.5); White Blood Count 11.6 K/mm3 (4.5-10.0)
[2023-09-14 07:20] LABS: Anion Gap 9 mmol/L (8-16); Blood Urea Nitrogen 38 mg/dL (7-17); Calcium 8.9 mg/dL (8.4-10.2); Carbon Dioxide 32 mmol/L (22-30); Chloride 98 mmol/L (98-107); Estimated CRCL calculation 45 ml/min; Estimated Glomerular Filt Rate 38; Glucose 155 mg/dL (65-110); Potassium 3.1 mmol/L (3.4-5.0); Sodium 139 mmol/L (137-145)
[2023-09-14] MEDS: POTASSIUM CHLORIDE 20 MEQ ER TABLET PO (09:15)
[2023-09-14] MEDS: CYANOCOBALAMIN 1,000 MCG TABLET 1000 MCG PO (09:16)
[2023-09-14] MEDS: ATORVASTATIN 40 MG TABLET 80 MG PO (09:16)
[2023-09-14] MEDS: MULTIVITAMINS THERAPEUTIC TAB (*BKC) 1 TABLET PO (09:16)
[2023-09-14] MEDS: SACUBITRIL/VALSARTAN 97-103 MG TABLET 1 TAB PO (09:16)
[2023-09-14] MEDS: carvediloL 12.5 MG TABLET PO (09:16)
[2023-09-14] MEDS: LORATADINE 10 MG TABLET PO (09:16)
[2023-09-14] MEDS: SPIRONOLACTONE 25 MG TABLET PO (09:16)
[2023-09-14] MEDS: AMIODARONE HCL 200 MG TABLET PO (09:16)
[2023-09-14] MEDS: ESCITALOPRAM OXALATE 10 MG TABLET PO (09:17)
[2023-09-14] MEDS: CHOLECALCIFEROL 1,000 UNITS TABLET 1000 UNITS PO (09:17)
[2023-09-14] MEDS: FLUTICASONE/SALMETEROL 115-21 MCG INHALER 1 PUFF 2 PUFF INHALATION (10:47)
--- NOTE | 2023-09-14 12:16 | PM.DS ---
DS: Admitting Diagnosis Discharge Date 09/14/23 Admitting Diagnosis Acute on chronic respiratory failure AFib with RVR CKD stage 3 E. Coli UTI Anemia of chronic disease DS: Discharge Diagnosis Discharge Diagnosis (1) Acute and chronic respiratory failure with hypoxia: Code(s): J96.21 - Acute and chronic respiratory failure with hypoxia Status: Acute (2) Pneumonia: Code(s): J18.9 - Pneumonia, unspecified organism Status: Acute (3) UTI (urinary tract infection): Code(s): N39.0 - Urinary tract infection, site not specified Status: Acute (4) Anemia in chronic kidney disease: Qualifiers: Chronic kidney disease stage: unspecified stage Qualified Code(s): N18.9 - Chronic kidney disease, unspecified; D63.1 - Anemia in chronic kidney disease Code(s): N18.9 - Chronic kidney disease, unspecified; D63.1 - Anemia in chronic kidney disease Status: Acute (5) Chronic kidney disease (CKD) stage G3b/A1, moderately decreased glomerular filtration rate (GFR) between 30-44 mL/min/1.73 square meter and albuminuria creatinine ratio less than 30 mg/g: Code(s): N18.32 - Chronic kidney disease, stage 3b Status: Acute DS: Summary Hospital Course Reason for hospitalization: Acute on chronic respiratory failure Hospital Course: 63-year-old female with past medical history of atrial fibrillation presented with worsening shortness of breaths.? Was found to be in AFib with RVR. Found to have pneumonia, was treated with ceftriaxone and doxycycline, O2 support. Was treated with Solu-Medrol as well. Her RVR resolved, rate controlled with Coreg and amiodarone. Her urine culture was positive for E coli. Was on ceftriaxone while in the hospital. Was discharged on cefdinir to complete a course for pneumonia as well as UTI. Received 3 doses of IV iron for anemia of chronic disease. Discharged home in stable condition Status at Discharge Functional status at discharge: independent ambulation Overall status at discharge: patient is back to baseline Time Spent with Patient Time attestation: Total time spent providing and/or coordinating discharge services: Time spent: Greater than 30 minutes Exam Narrative: General physical exam: Morbidly obese, lying in bed, alert awake oriented x3 Head/eyes: Atraumatic, EOMI, PERRLA ENT: Moist mucous membranes, nasal passages clear Neck: Supple, full range of motion, trachea midline CVS: S1 + S2, irregularly irregular rate and rhythm, no murmurs Respiratory: Bilaterally decreased air entry in both lung mina, mild B/L crackles, symmetric chest expansion, + bilateral scattered rhonchi Abdomen: Soft, non-tender, bowel sounds +ve, no organomegaly Extremities: No clubbing, no cyanosis, no edema, no calf tenderness Musculoskeletal: Moves all, decreased range of motion, no muscle spasms Skin: Warm, dry, no jaundice, no cyanosis Neurological: Awake, alert, oriented x 3, cranial nerves II-XII intact, no focal neurological deficits Psychiatric: Normal mood, non suicidal DS: Data Data Completed and Pending Labs on day of discharge: Labs from last 24 hours 09/14/23 06:16 WBC 11.6 H RBC 3.65 L Hgb 10.7 L Hct 34.0 L MCV 93.2 MCH 29.3 MCHC 31.5 L RDW 14.5 Plt Count 233 MPV 10.8 H Immature Gran % (Auto) 0.9 H Neut % (Auto) 93.4 H Lymph % (Auto) 3.0 L [place] % (Auto) 2.5 L Eos % (Auto) 0.0 Baso % (Auto) 0.2 Lymph # (Auto) 0.35 L [place] # (Auto) 0.3 Eos # (Auto) 0.0 Baso # (Auto) 0.0 Abs Immat Gran (auto) 0.11 H Absolute Neuts (auto) 10.9 H Absolute Nucleated RBC 0.050 H Nucleated RBC % 0.4 H Sodium 139 Potassium 3.1 L Chloride 98 Carbon Dioxide 32 H Anion Gap 9 BUN 38 H Creatinine 1.40 H Estim Creat Clear Calc 45 Estimated GFR 38 L Glucose 155 H Calcium 8.9 Preliminary micro results at discharge 09/11/23 04:56 Blood Culture - Preliminary Blood 09/11/23 04:56 Blood Culture - Preliminar
[2023-09-14] MEDS: POTASSIUM CHLORIDE 20 MEQ ER TABLET 40 MEQ PO (12:38)
--- NOTE | 2023-09-16 12:16 | PC.NURSE ---
Patient called stating medications were not transmitted to her pharmacy. Medications sent to pharmacy of choice. Patient made aware to call back if there were further issues. Patient voiced understanding.
== END 2023-09-14 14:45 | disposition home or self-care (01) | DRG 193 ==
LOC: ANHED 04:54 → ANHIMU 05:12 → ANH3MEDSUR 09-14 09:25 → ANHIMU 09-15 11:30
PROVIDERS: Family Medicine; Admitting Provider Internal Medicine; Emergency Provider Emergency Medicine; PCP Family Medicine; Visit Provider Internal Medicine
DX: J18.9 Pneumonia, unspecified organism (principal); J96.21 Acute and chronic respiratory failure with hypoxia; Z68.41 Body mass index [BMI] 40.0-44.9, adult; N39.0 Urinary tract infection, site not specified; B96.20 Unspecified Escherichia coli [E. coli] as the cause of diseases classified elsewhere; I48.0 Paroxysmal atrial fibrillation; Z20.822 Contact with and (suspected) exposure to COVID-19; D63.1 Anemia in chronic kidney disease; N18.32 Chronic kidney disease, stage 3b; E66.01 Morbid (severe) obesity due to excess calories; G47.33 Obstructive sleep apnea (adult) (pediatric); L40.9 Psoriasis, unspecified; D50.9 Iron deficiency anemia, unspecified; I34.0 Nonrheumatic mitral (valve) insufficiency; G89.29 Other chronic pain; E78.2 Mixed hyperlipidemia; Z95.5 Presence of coronary angioplasty implant and graft; Z95.1 Presence of aortocoronary bypass graft; Z87.891 Personal history of nicotine dependence
CPT/HCPCS: 36415; 36600; 71045; 71275; 80048; 80053; 82728; 82805; 83540; 83550; 83605; 83690; 83735; 83880; 84100; 84484; 85025; 85610; 85730; 87040; 87077; 87086; 87088; 87186; 87637; 93005; 94640; 99285; A9270; C8929; J0696; J1756; J1940; J2930; J7050; Q9957; Q9967

== ENCOUNTER 2023-10-20 00:28 | Day surgery (SDC) | payer MEDICARE, SELFPAY ==
[2023-10-19 13:03] VITALS: BMI 40.0
[2023-10-20] VITALS (8 sets, daily range): BP systolic 83–103; BP diastolic 60–81; PULSE 66–95; RESP 13–16; TEMP 36.4–36.7; O2SAT 94–100; BMI 40.0
--- NOTE | 2023-10-20 08:30 | ECG_ITS ---
SEE SCANNED COPY FOR CONFIRMED REPORT MTDD
[2023-10-20 08:56] LABS: Basophils Percent Auto 0.2 % (0.2-1.2); Eosinophils Absolute Auto 0.1 K/mm3 (0-0.3); Hematocrit 37.7 % (37.0-47.0); Immature Granulocyte Absolute 0.06 K/mm3 (0.00-0.031); Immature Granulocyte Percent A 0.7 % (0-0.5); Lymphocytes Percent Auto 18.6 % (18.3-44.2); Mean Corpuscular HGB Conc 31.8 g/dl (32-36); Mean Corpuscular Hemoglobin 30.8 pg (26-34); Mean Corpuscular Volume 96.9 fl (80-100); Mean Platelet Volume 9.7 fl (7.4-10.4); Monocytes Absolute Auto 0.7 K/mm3 (0.1-0.6); Monocytes Percent Auto 8.5 % (2.6-8.5); Neutrophils Absolute Auto 6.1 K/mm3 (1.3-6.7); Platelet Count Result 189 k/mm3 (150-375); Red Blood Count 3.89 M/mm3 (4.2-5.4); Red Cell Distribution Width 15.7 % (11.5-14.5); White Blood Count 8.6 K/mm3 (4.5-10.0)
[2023-10-20 09:06] LABS: Anion Gap 8 mmol/L (4-12); Blood Urea Nitrogen 21 mg/dL (7-17); Carbon Dioxide 31 mmol/L (22-30); Chloride 102 mmol/L (98-107); Estimated CRCL calculation 34 ml/min; Estimated Glomerular Filt Rate 29; Glucose 98 mg/dL (65-110); Magnesium 1.6 mg/dL (1.6-2.3); Potassium 3.6 mmol/L (3.4-5.0); Sodium 141 mmol/L (137-145)
--- NOTE | 2023-10-20 09:24 | WPDANESEPP ---
Anes - Eval Pre Procedure Procedure: Operation Date: 10/20/23 10:00 Proposed Procedures p Electrical Cardioversion - Long Gonsales MD Date/Time: 10/20/23 09:24 Pre Op Diagnosis: a-fib Patient Data Age: 63 Gender: F Height: 1.6 m Weight: 102.5 kg Last Vital Signs Temp 97.6 F 10/20/23 08:40 Pulse 71 10/20/23 08:40 Resp 13 10/20/23 08:40 Pulse Ox 100 10/20/23 08:40 O2 Del Method Room Air 10/20/23 08:40 Allergies Allergy/AdvReac Type Severity Reaction Status Date / Time No Known Allergies Allergy Verified 10/20/23 08:37 Home Medications Medication Instructions Recorded Confirmed Type sacubitril 97 mg-valsartan 103 mg 1 tablet PO BID #180 tabs 06/10/20 10/20/23 Rx tablet cholecalciferol (vitamin D3) 25 1,000 unit PO DAILY #90 caps 05/10/21 10/20/23 Rx mcg (1,000 unit) capsule clobetasol 0.05 % scalp solution 1 applic topical BID #50 mL 05/10/21 10/20/23 Rx cyanocobalamin (vitamin B-12) 1,000 mcg PO DAILY #90 tabs 05/10/21 10/20/23 Rx 1,000 mcg tablet (Vitamin B-12) multivitamin 1 tablet PO DAILY #90 tabs 05/10/21 10/20/23 Rx nystatin 100,000 unit/gram topical 1 applic topical BID #180 grams 05/10/21 10/20/23 Rx powder fluticasone propionate 50 1 spray intranasal BID #48 mL 08/02/21 10/20/23 Rx mcg/actuation nasal spray,suspension (Flonase Allergy Relief) diclofenac sodium 75 mg 75 mg PO BID PRN pain #180 tabs 08/10/22 10/20/23 Rx tablet,delayed release furosemide 40 mg tablet 40 mg PO QAM #90 tabs 08/10/22 10/19/23 Rx amiodarone 200 mg tablet 200 mg PO DAILY #90 tabs 06/20/23 10/20/23 Rx atorvastatin 80 mg tablet 80 mg PO DAILY #90 tabs 06/20/23 10/20/23 Rx carvedilol 12.5 mg tablet 12.5 mg PO Q12H #180 tabs 06/20/23 10/20/23 Rx potassium chloride 20 mEq 20 meq PO DAILY #90 tabs 06/20/23 10/20/23 Rx tablet,extended release(part/cryst) (Klor-Con M) spironolactone 25 mg tablet 25 mg PO DAILY #90 tabs 06/20/23 10/19/23 Rx rivaroxaban 20 mg tablet (Xarelto) 20 mg PO DAILY #90 tabs 06/28/23 10/20/23 Rx escitalopram oxalate 10 mg tablet 10 mg PO DAILY #90 tabs 07/24/23 10/20/23 Rx (Lexapro) loratadine 10 mg tablet (Claritin) 10 mg PO DAILY 09/11/23 10/20/23 History nitroglycerin 0.4 mg sublingual 0.4 mg sublingual Q5M PRN chest 09/21/23 10/19/23 Rx tablet pain #180 tabs oxycodone-acetaminophen 7.5 mg-325 1 tablet PO Q6H PRN pain #120 tabs 10/13/23 10/20/23 Rx mg tablet (Percocet) levothyroxine 88 mcg tablet 88 mcg PO DAILY 10/19/23 10/20/23 History zolpidem 10 mg tablet 10 mg PO HS PRN insomnia 10/19/23 10/19/23 History Laboratory Tests 10/20/23 08:46 WBC 8.6 K/mm3 (4.5-10.0) RBC 3.89 L M/mm3 (4.2-5.4) Hgb 12.0 g/dL (12.0-15.0) Hct 37.7 % (37.0-47.0) MCV 96.9 fl (80-100) MCH 30.8 pg (26-34) MCHC 31.8 L g/dl (32-36) RDW 15.7 H % (11.5-14.5) Plt Count 189 k/mm3 (150-375) MPV 9.7 fl (7.4-10.4) Immature Gran % (Auto) 0.7 H % (0-0.5) Neut % (Auto) 71.0 % (45.5-73.1) Lymph % (Auto) 18.6 % (18.3-44.2) [place] % (Auto) 8.5 % (2.6-8.5) Eos % (Auto) 1.0 % (0-4.4) Baso % (Auto) 0.2 % (0.2-1.2) Lymph # (Auto) 1.60 K/mm3 (0.9-3.2) [place] # (Auto) 0.7 H K/mm3 (0.1-0.6) Eos # (Auto) 0.1 K/mm3 (0-0.3) Baso # (Auto) 0.0 K/mm3 (0.0-0.1) Abs Immat Gran (auto) 0.06 H K/mm3 (0.00-0.031) Absolute Neuts (auto) 6.1 K/mm3 (1.3-6.7) Absolute Nucleated RBC 0.000 K/mm3 (0.0-0.012) Nucleated RBC % 0.0 % (0.0-0.2) Sodium 141 mmol/L (137-145) Potassium 3.6 mmol/L (3.4-5.0) Chloride 102 mmol/L (98-107) Carbon Dioxide 31 H mmol/L (22-30) Anion Gap 8 mmol/L (4-12) BUN 21 H D mg/dL (7-17) Creatinine 1.80 H mg/dL (0.7-1.0) Estim Creat Clear Calc 34 ml/min Estimated GFR 29 L (59 - ) Glucose 98 mg/dL (65-110) Calcium 10.0 mg/dL (8.4-10.2) Magnesium 1.6 mg/dL
--- NOTE | 2023-10-20 10:15 | ECG_ITS ---
SEE SCANNED COPY FOR CONFIRMED REPORT MTDD
--- NOTE | 2023-10-20 10:16 | P.PNAN_ITS ---
Anes - Initial Pre Proc Eval Procedure: Operation Date: 10/20/23 10:00 Proposed Procedures p Electrical Cardioversion - Long Gonsales MD Date/Time: 10/20/23 10:16 Surgeon: Long Gonsales MD Pre Op Diagnosis: a-fib Patient Data Age: 63 Gender: F Height: 1.6 m Weight: 102.5 kg Last Vital Signs Temp 97.6 F 10/20/23 08:40 Pulse 71 10/20/23 08:40 Resp 13 10/20/23 08:40 Pulse Ox 100 10/20/23 08:40 O2 Del Method Room Air 10/20/23 08:40 Allergies Allergy/AdvReac Type Severity Reaction Status Date / Time No Known Allergies Allergy Verified 10/20/23 08:37 Home Medications Medication Instructions Recorded Confirmed Type sacubitril 97 mg-valsartan 103 mg 1 tablet PO BID #180 tabs 06/10/20 10/20/23 Rx tablet cholecalciferol (vitamin D3) 25 1,000 unit PO DAILY #90 caps 05/10/21 10/20/23 Rx mcg (1,000 unit) capsule clobetasol 0.05 % scalp solution 1 applic topical BID #50 mL 05/10/21 10/20/23 Rx cyanocobalamin (vitamin B-12) 1,000 mcg PO DAILY #90 tabs 05/10/21 10/20/23 Rx 1,000 mcg tablet (Vitamin B-12) multivitamin 1 tablet PO DAILY #90 tabs 05/10/21 10/20/23 Rx nystatin 100,000 unit/gram topical 1 applic topical BID #180 grams 05/10/21 10/20/23 Rx powder fluticasone propionate 50 1 spray intranasal BID #48 mL 08/02/21 10/20/23 Rx mcg/actuation nasal spray,suspension (Flonase Allergy Relief) diclofenac sodium 75 mg 75 mg PO BID PRN pain #180 tabs 08/10/22 10/20/23 Rx tablet,delayed release furosemide 40 mg tablet 40 mg PO QAM #90 tabs 08/10/22 10/19/23 Rx amiodarone 200 mg tablet 200 mg PO DAILY #90 tabs 06/20/23 10/20/23 Rx atorvastatin 80 mg tablet 80 mg PO DAILY #90 tabs 06/20/23 10/20/23 Rx carvedilol 12.5 mg tablet 12.5 mg PO Q12H #180 tabs 06/20/23 10/20/23 Rx potassium chloride 20 mEq 20 meq PO DAILY #90 tabs 06/20/23 10/20/23 Rx tablet,extended release(part/cryst) (Klor-Con M) spironolactone 25 mg tablet 25 mg PO DAILY #90 tabs 06/20/23 10/19/23 Rx rivaroxaban 20 mg tablet (Xarelto) 20 mg PO DAILY #90 tabs 06/28/23 10/20/23 Rx escitalopram oxalate 10 mg tablet 10 mg PO DAILY #90 tabs 07/24/23 10/20/23 Rx (Lexapro) loratadine 10 mg tablet (Claritin) 10 mg PO DAILY 09/11/23 10/20/23 History nitroglycerin 0.4 mg sublingual 0.4 mg sublingual Q5M PRN chest 09/21/23 10/19/23 Rx tablet pain #180 tabs oxycodone-acetaminophen 7.5 mg-325 1 tablet PO Q6H PRN pain #120 tabs 10/13/23 10/20/23 Rx mg tablet (Percocet) levothyroxine 88 mcg tablet 88 mcg PO DAILY 10/19/23 10/20/23 History zolpidem 10 mg tablet 10 mg PO HS PRN insomnia 10/19/23 10/19/23 History Laboratory Tests 10/20/23 08:46 WBC 8.6 K/mm3 (4.5-10.0) RBC 3.89 L M/mm3 (4.2-5.4) Hgb 12.0 g/dL (12.0-15.0) Hct 37.7 % (37.0-47.0) MCV 96.9 fl (80-100) MCH 30.8 pg (26-34) MCHC 31.8 L g/dl (32-36) RDW 15.7 H % (11.5-14.5) Plt Count 189 k/mm3 (150-375) MPV 9
--- NOTE | 2023-10-20 10:26 | P.PCNCC_ITS ---
Cardiac Cath Procedure Note Date of procedure:: 10/20/23 Performing physician:: Long Gonsales MD Indication:: Atrial fibrillation Brief clinical history:: this is a 63-year-old lady with history of coronary disease, previous surgical revascularization and history of atrial fibrillation which had been maintained in sinus rhythm with amiodarone treatment. Recently there has been a recurrence of her atrial fibrillation the last couple months which has sustained despite amiodarone treatment. An attempt at restoring sinus rhythm Electrically has been recommended for today. Procedure Procedure performed:: DC cardioversion Sedation/Medication given:: anesthesia service provided sedation please see their separately dictated note Estimated blood loss:: 0 Procedure note:: patient was brought to the postanesthesia care unit in the canvas shop laborer area where she was in the postabsorptive state and placed in the supine position with the head of bed elevated about 30?. She was then sedated per the Anesthesia Service. Defibrillator patches were in the AP position. After establishment of good sedation she was cardioverted with 200 joules in a synchronized fashion with no change in the rhythm. The defibrillator was then increased in power to 360 joules output and a 2nd shock was delivered in a synchronized fashion at this energy level also with ongoing atrial fibrillation and no evidence of sinus rhythm. Findings:: As above Conclusion:: unsuccessful but uncomplicated attempt at electrical cardioversion of atrial fibrillation failing 200 joules and 360 joule shock with unremitting atrial fibrillation Long Gonsales MD [facility]
== END 2023-10-20 12:20 | disposition home or self-care (01) ==
PROVIDERS: PCP Family Medicine; Visit Provider Specialist
PROC: 5A2204Z Restoration of Cardiac Rhythm, Single (ICD-10-PCS; principal; 2023-10-20 10:00)
DX: I48.0 Paroxysmal atrial fibrillation (principal); J96.21 Acute and chronic respiratory failure with hypoxia; G47.33 Obstructive sleep apnea (adult) (pediatric); N18.32 Chronic kidney disease, stage 3b; D63.1 Anemia in chronic kidney disease; E66.01 Morbid (severe) obesity due to excess calories; Z68.41 Body mass index [BMI] 40.0-44.9, adult; Z95.1 Presence of aortocoronary bypass graft; Z95.820 Peripheral vascular angioplasty status with implants and grafts; F12.90 Cannabis use, unspecified, uncomplicated; Z87.891 Personal history of nicotine dependence; Z79.01 Long term (current) use of anticoagulants; Z79.891 Long term (current) use of opiate analgesic
CPT/HCPCS: 36415; 80048; 83735; 85025; 92960; J7030

== ENCOUNTER 2024-01-01 11:54 | Outpatient (CLI) | payer MEDICARE, SELFPAY ==
[2024-01-01 12:39] LABS: Alanine Aminotransferase 14 U/L (6-35); Albumin Level 4.5 g/dL (3.5-5.1); Alkaline Phosphatase 77 U/L (38-126); Anion Gap 8 mmol/L (4-12); Aspartate Amino Transferase 25 U/L (14-36); Bilirubin,Total 0.4 mg/dL (0.2-1.3); Blood Urea Nitrogen 33 mg/dL (7-17); Calcium 9.7 mg/dL (8.4-10.2); Carbon Dioxide 32 mmol/L (22-30); Chloride 101 mmol/L (98-107); Cholesterol 176 mg/dL (0-200); Estimated Glomerular Filt Rate 25; Glucose 81 mg/dL (65-110); HDL Direct 59 mg/dL; Potassium 5.2 mmol/L (3.4-5.0); Sodium 141 mmol/L (137-145); Triglycerides 94 mg/dL (<150)
[2024-01-01 12:46] LABS: Basophils Percent Auto 0.4 % (0.2-1.2); Eosinophils Absolute Auto 0.2 K/mm3 (0-0.3); Eosinophils Percent Auto 3.1 % (0-4.4); Hemoglobin 11.4 g/dL (12.0-15.0); Immature Granulocyte Absolute 0.03 K/mm3 (0.00-0.031); Immature Granulocyte Percent A 0.4 % (0-0.5); Lymphocytes Absolute Auto 1.06 K/mm3 (0.9-3.2); Lymphocytes Percent Auto 15.1 % (18.3-44.2); Mean Corpuscular HGB Conc 31.7 g/dl (32-36); Mean Corpuscular Hemoglobin 31.8 pg (26-34); Mean Corpuscular Volume 100.6 fl (80-100); Monocytes Absolute Auto 0.8 K/mm3 (0.1-0.6); Monocytes Percent Auto 11.5 % (2.6-8.5); Neutrophils Absolute Auto 4.9 K/mm3 (1.3-6.7); Neutrophils Percent Auto 69.5 % (45.5-73.1); Platelet Count Result 198 k/mm3 (150-375); Red Blood Count 3.58 M/mm3 (4.2-5.4); Red Cell Distribution Width 13.4 % (11.5-14.5)
[2024-01-01 12:51] LABS: LDL Cholesterol Direct 88 mg/dL
[2024-01-01 12:58] LABS: Iron 85 ug/dL (37-170)
[2024-01-01 13:07] LABS: Percent Iron Saturation 26 % (20-50)
== END 2024-01-01 11:55 | disposition home or self-care (01) ==
LOC: ANHLAB 11:56
PROVIDERS: PCP Family Medicine; Visit Provider Family Medicine
DX: N18.32 Chronic kidney disease, stage 3b (principal); D63.1 Anemia in chronic kidney disease; E03.9 Hypothyroidism, unspecified; E78.2 Mixed hyperlipidemia
CPT/HCPCS: 36415; 80048; 80061; 80076; 82728; 83540; 83550; 84443; 85025

== ENCOUNTER 2024-05-08 13:47 | Outpatient (CLI) | payer MEDICARE, SELFPAY ==
[2024-05-08 14:32] LABS: Basophils Percent Auto 0.4 % (0.2-1.2); Eosinophils Absolute Auto 0.1 K/mm3 (0-0.3); Eosinophils Percent Auto 1.9 % (0-4.4); Hematocrit 37.9 % (37.0-47.0); Hemoglobin 12.2 g/dL (12.0-15.0); Immature Granulocyte Absolute 0.03 K/mm3 (0.00-0.031); Immature Granulocyte Percent A 0.4 % (0-0.5); Lymphocytes Percent Auto 15.8 % (18.3-44.2); Mean Corpuscular HGB Conc 32.2 g/dl (32-36); Mean Corpuscular Volume 96.4 fl (80-100); Mean Platelet Volume 9.9 fl (7.4-10.4); Monocytes Absolute Auto 0.9 K/mm3 (0.1-0.6); Monocytes Percent Auto 12.2 % (2.6-8.5); Neutrophils Absolute Auto 4.8 K/mm3 (1.3-6.7); Neutrophils Percent Auto 69.3 % (45.5-73.1); Platelet Count Result 220 k/mm3 (150-375); Red Blood Count 3.93 M/mm3 (4.2-5.4); Red Cell Distribution Width 14.2 % (11.5-14.5)
[2024-05-08 14:47] LABS: Alanine Aminotransferase 14 U/L (6-35); Albumin Level 4.7 g/dL (3.5-5.1); Alkaline Phosphatase 79 U/L (38-126); Anion Gap 8 mmol/L (4-12); Aspartate Amino Transferase 29 U/L (14-36); Bilirubin,Total 0.9 mg/dL (0.2-1.3); Blood Urea Nitrogen 19 mg/dL (7-17); Calcium 10.2 mg/dL (8.4-10.2); Carbon Dioxide 30 mmol/L (22-30); Chloride 101 mmol/L (98-107); Cholesterol 182 mg/dL (0-200); Estimated Glomerular Filt Rate 27; Glucose 95 mg/dL (65-110); HDL Direct 68 mg/dL; Potassium 4.4 mmol/L (3.4-5.0); Sodium 139 mmol/L (137-145); Triglycerides 95 mg/dL (<150)
[2024-05-08 14:58] LABS: LDL Cholesterol Direct 74 mg/dL
== END 2024-05-08 13:48 | disposition home or self-care (01) ==
PROVIDERS: PCP Family Medicine; Visit Provider Family Medicine
DX: N18.32 Chronic kidney disease, stage 3b (principal); D63.1 Anemia in chronic kidney disease; E78.2 Mixed hyperlipidemia
CPT/HCPCS: 36415; 80048; 80061; 80076; 85025

== ENCOUNTER 2024-09-05 16:02 | Outpatient (CLI) | payer MEDICARE, SELFPAY ==
[2024-09-05 17:12] LABS: Anion Gap 13 mmol/L (4-12); Blood Urea Nitrogen 20 mg/dL (7-17); Carbon Dioxide 27 mmol/L (22-30); Chloride 96 mmol/L (98-107); Estimated Glomerular Filt Rate 35; Glucose 69 mg/dL (65-110); Potassium 4.2 mmol/L (3.4-5.0); Sodium 136 mmol/L (137-145)
--- OUTSIDE RECORDS SUMMARY | 2024-09-05 17:31 | XMS_ITS | Encounter Summary ---
Author Organization [facility] Healthcare Address [address] [place] [address] Care Team Providers Care Cleaner And Polisher Name Role Phone Juan Gonzalez MD Primary Care Provider [phone] Encounter Details Date Type Department Care Team (Late st Contact Info) Description 10/20/2023 Orders Only [facility] Health Information Management [address] [place] [id number] Scanning, Provider Social History Tobacco Use Types Packs/Day Years Used Date Smoking Tobacco: Former Cigarettes Q uit: 06/13/2002 Smokeless Tobacco: Never Alcohol Use Standard Drinks/Week Comments Yes 1 (1 standard drink = 0.6 oz pur e alcohol) occassionally Comments Unknown Sex and Gender Information Value Date Recorded Sex Assigned at Not on file 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 Gender Identity Not on file Sexual Orientation Not on file documented as of this encounter Plan of Treatment Not on file documented as of this encounter Procedures Procedure Name Priority Date/Time Associated Diagnosis Comments SCAN - LABS 10/20/2023 CARDIOLOGY DOCUMENT SCAN 10/20/2023 documented in this encounter Results * SCAN - LABS (10/20/2023) us Provider Scanning Final Result * Cardiology Document Scan (10/20/2023) Anatomical Region Laterality Modality Other us Provider Scanning CV CARDIAC SERVICES PROCEDURES Final Result documented in this encounter Visit Diagnoses Not on filedocumented in this encounter Care Teams Cleaner And Polisher Relationship Specialty Start Date End Date Juan Gonzalez MD [address] [address] PCP - General 01/25/13 documented as of this encounter
--- OUTSIDE RECORDS SUMMARY | 2024-09-05 17:31 | XMS_ITS | Clinical Summary ---
Author Organization [facility] Address [address] [place] [id number] Phone Care Team Providers Care Tube Heater Name Role Phone Juan Gonzalez MD Primary Care Provider [phone] Allergies No known active allergies Medications Medication Sig Dispensed Refills Start Date End Date Status amiodarone (PACERONE) 200 MG tablet Take 1 tablet by mouth 1 (one) time each day 05/12/2014 Active atorvastatin (LIPITOR) 80 MG tablet Take 80 mg by mouth daily 03/22/2019 Active carvedilol (COREG) 25 MG tablet Take 25 mg by mouth 2 times daily 03/22/2019 Active cetirizine (ZyrTEC) 10 MG tablet 10 mg 01/23/2014 Active cholecalciferol (VITAMIN D-3) 25 MCG (1000 UT) capsule take 1 by Oral route once 01/25/2013 Active cyanocobalamin (VITAMIN B-12) 1000 MCG tablet 1,000 mcg 01/25/2013 Active diclofenac (VOLTAREN) 75 MG EC tablet 05/29/2021 Active escitalopram (LEXAPRO) 10 MG tablet 06/08/2021 Active fluticasone (FLONASE) 50 MCG/ACT nasal spray inhale 1 spray by intranasal route every day in each nostril 05/08/2014 Active furosemide (LASIX) 40 MG tablet 07/12/2021 Active HYDROcodone-acetamin ophen 10-325 MG per tablet 08/24/2021 Active levothyroxine (SYNTHROID) 100 MCG tablet 08/03/2021 Active nitroglycerin (NITROSTAT) 0.[address] 0.4 mg under the tongue 07/05/2017 Active potassium chloride (KLOR-CON M20) 20 MEQ CR tablet Take 20 mEq by mouth 2 times daily 05/09/2019 Active Xarelto 20 MG tablet Take 20 mg by mouth 1 (one) time each day 06/19/2021 Active Entresto 97-103 MG per tablet Take 1 tablet by mouth 2 (two) times a day 07/26/2021 Active spironolactone (ALDACTONE) 25 MG tablet Take 25 mg by mouth daily 06/14/2019 Active zolpidem (AMBIEN) 10 MG tablet TAKE 1 TABLET BY MOUTH AT BEDTIME NEEDED FOR INSOMNIA 07/26/2021 Active multivitamin with minerals (CENTRUM/CERTAVIT) 9-200 mg-mcg tablet (HALF TABLET) take 1 tablet by oral route every day with food 01/25/2013 Active albuterol HFA (PROVENTIL HFA) 108 (90 Base) MCG/ACT inhaler albuterol sulfate HFA 90 mcg/actuation aerosol inhaler INL 2 PFS PO Q 4 TO 6 H PRN Active clopidogrel (PLAVIX) 75 MG tablet clopidogrel 75 mg tablet Active Active Problems Problem Noted Date Diagnosed Date Chronic kidney disease stage 3B 08/26/2021 Coronary atherosclerosis 06/13/2017 Ischemic myocardial dysfunction 06/13/2017 Paroxysmal atrial fibrillation 06/13/2017 Social History Tobacco Use Types Packs/Day Years Used Date Smoking Tobacco: Former Smokeless Tobacco: Never Alcohol Use Standard Drinks/Week Comments Yes 0 (1 standard drink = 0.6 oz pur e alcohol) occasionally Sex and Gender Information Value Date Recorded Sex Assigned at Not on file Gender Identity Not on file Sexual Orientation Not on file Last Filed Vital Signs Vital Sign Reading Time Taken Comments Blood Pressure 118/70 01/12/2022 3:58 PM CDT Pulse 72 01/12/2022 3:58 PM CDT Temperature 36.4 C (97.5 F) 01/12/2022 3:58 PM CDT Respiratory Rate - - Oxygen Saturation - - Inhaled Oxygen Concentration - - Weight 97.1 kg (214 lb) 01/12/2022 3:58 PM CDT Height 160 cm (5' 3 ) 01/12/2022 3:58 PM CDT Body Mass Index 37.91 01/12/2022 3:58 PM CDT Plan of Treatment Health Maintenance Due Date Last Done Comments Influenza Vaccine (#1) 2024 Care Teams Tube Heater Relationship Specialty Start Date End Date Juan Gonzalez MD [address] [place] [id number] PCP - General Internal Medicine 08/10/21
--- OUTSIDE RECORDS SUMMARY | 2024-09-05 17:31 | XMS_ITS | Referral Summary ---
Author Organization [facility] [place] [facility] [address] Address [address] [place] [address] Care Team Providers Care Table Tender Name Role Phone Juan Gonzalez MD Primary Care Provider [phone] Encounters Date Type Department Care Team Description 07/22/2024 Telephone [facility] Cardiology [address] [place] [address] Long Gonsales MD from Last 3 Months Allergies No known active allergies Medications cyanocobalamin (vitamin B-12) 1,000 mcg tablet take 1 by Oral route every day 0 0 01/26/[address] (VOLTAREN) 75 mg EC tablet take 1 tablet by oral route 2 times every day 0 0 01/26/20 13 Active Additional Information Patient taking differently:75 mgoral Daily, Reported on 03/30/2023 multivitamin tablet tablet take 1 tablet by oral route every day with food 0 0 01/26/20 13 Active cholecalciferol (VITAMIN D3) 1,000 unit capsule take 1 by Oral route once 0 0 01/26/20 13 Active cetirizine (ZyrTEC) 10 mg tablet take 1 tablet by oral route every day 0 0 01/24/20 14 Active escitalopram (LEXAPRO) 10 mg tablet take 1 tablet by oral route every day 0 0 01/24/20 14 Active HYDROcodone-acetam inophen (NORCO) 5-325 mg per tablet take 1 tablet by oral route every 6 hours as needed for pain 0 0 01/24/20 14 Active fluticasone (FLONASE) 50 mcg/actuation nasal spray inhale 1 spray by intranasal route every day in each nostril 0 spray 0 05/08/20 14 Active rivaroxaban (XARELTO) 20 mg tablet TAKE 1 TABLET BY ORAL ROUTE EVERY DAY WITH THE EVENING MEAL 90 2 05/12/20 14 Active levothyroxine (SYNTHROID, LEVOTHROID) 88 mcg tablet Take 0.5 tablets (44 mcg total) by mouth daily Active nitroglycerin (NITROSTAT) 0.[address] 1 tablet (0.4 mg total) under the tongue every 5 (five) minutes as needed for chest pain (Do not exceed 3 tabs). 25 tablet 11 07/05/19 18 Active zolpidem (AMBIEN) 10 mg tablet Take 1 tablet (10 mg total) by mouth as needed 5 01/17/20 19 Active atorvastatin (LIPITOR) 80 mg tabletIndications: Coronary artery disease involving nome coronary artery of nome heart without angina pectoris Take 1 tablet (80 mg total) by mouth daily 90 tablet 3 03/22/20 19 025 Active carvedilol (COREG) 25 mg tabletIndications: Ischemic cardiomyopathy Take 1 tablet (25 mg total) by mouth 2 (two) times a day with meals 180 tablet 3 03/22/20 19 025 Active POTASSIUM CHLORIDE ER 20 mEq CR tablet Take 1 tablet (20 mEq total) by mouth 2 (two) times a day 180 tablet 3 05/09/20 19 Active furosemide (LASIX) 40 mg tablet Take 1 tablet (40 mg total) by mouth daily 90 tablet 1 06/05/20 19 Active spironolactone (ALDACTONE) 25 mg tablet Take 1 tablet (25 mg total) by mouth daily 30 tablet 5 06/14/20 19 Active sacubitriL-valsart an (Entresto) 97-103 mg tabletIndications: Ischemic cardiomyopathy Take 1 tablet by mouth 2 (two) times a day 180 tablet 3 06/05/20 24 Active Active Problems Problem Noted Date Diagnosed Date Morbid (severe) obesity due to excess calories 0 11/23/2023 Body mass index 40.0-44.9, adult (CMS/HCC) 11/22 Coronary artery disease invo lving nome coronary artery of nome heart without angina pectoris 06/13/2017 Cardiomyopathy, ischemic 06/13/2017 Paroxysmal atrial fibrillation 06/13/2017 Social History Tobacco Use Types Packs/Day Years Used Date Smoking Tobacco: Former Cigarettes Q uit: 06/13/2002 Smokeless Tobacco: Never Tobacco Cessation:Counseling Given: Not Answered Alcohol Use Standard Drinks/Week Comments Yes 1 (1 standard drink = 0.6 oz pur e alcohol) occassionally Comments Unknown Sex and Gender Information Value Date Recorded Sex Assigned at Not on file 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 Gender Identity Not on file Sexual Orientation Not on file Last Filed Vital Signs Vital Sign Reading Time Taken Comments Blood Pressure 92/60 03/12/2024 1:00 PM CDT Pulse 64 03/12/2024 1:00 PM CDT Temperature - - Respiratory Rate - - Oxygen Saturation 94% 03/12/2024 1:00 PM CDT Inhaled Oxygen Concentration - - Weight 100.7 kg (222 lb) 03/12/2024 1:00 PM CDT Height 160 cm (5' 3 ) 03/12/2024 1:00 PM CDT Body Mass Index 39.33 03/12/2024 1:00 PM CDT Plan of Treatment Not on file Insurance MEDICARE SOLUTIONS MEDICARE SOLUTIONS Care Teams Table Tender Relationship Specialty Start Date End Date Juan Gonazlez MD [address] [id number] PCP - General 01/25/13
--- OUTSIDE RECORDS SUMMARY | 2024-09-05 17:31 | XMS_ITS | Clinical Summary ---
Author Organization [facility] [address] Address [address] [place] [address] Care Team Providers Care Superintendent Maintenance Airports Name Role Phone Juan Gonzalez MD Primary Care Provider [phone] Allergies No known active allergies Medications cyanocobalamin [...] 80 mg tabletIndications: Coronary artery disease involving la posta coronary artery of [place] post[place] heart without angina pectoris Take 1 tablet [...] (CMS/HCC) 11/22 Coronary artery disease invo lving la posta coronary artery of la posta heart without angina pectoris 06/13/2017 Cardiomyopathy, ischemic 06/13/2017 Paroxysmal atrial fibrillation 06/13/2017 Encounters Date Type Department Care Team Description 07/22/2024 Telephone [facility] Cardiology [address] [place] [address] Long Gonsales MD from Last 3 Months Surgical History Surgery Date Site/Laterality Comments OTHER SURGICAL HISTORY Hysterectomy - Partial SECTION Caesarean Section Medical History Medical History Date Comments Hx Other Medical Osteoarthritis - knees Adiposity Obesity Social History Tobacco Use Types Packs/Day Years Used Date Smoking Tobacco: Former Cigarettes Q uit: 06/13/2002 Smokeless Tobacco: Never Tobacco Cessation:Counseling Given: Not Answered Alcohol Use Standard Drinks/Week Comments Yes 1 (1 standard drink = 0.6 oz pur e alcohol) occassionally Comments Unknown Sex and Gender Information Value Date Recorded Sex Assigned at Not on file 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 Gender Identity Not on file Sexual Orientation Not on file Obstetrics History Last Filed Vital Signs Vital Sign Reading [...] 03/12/2024 1:00 PM CDT Plan of Treatment Health Maintenance Due Date Last Done Comments Breast Cancer Screening-Mammogram 1962 Cervical Cancer Screening 1962 Colon Cancer Screening-Colonoscopy 1962 Depression Screening 1962 Hepatitis C Screening 1962 DTaP/Tdap/Td Vaccine (1 - Tdap) 1973 Hepatitis B Screening 02/15/1980 Regular Well Visit/Exam 18-64 02/15/1980 Zoster Vaccine (1 of 2) 02/15/2012 Influenza Vaccine (#1) 2024 Pneumococcal vaccine <65 Aged Out No longer eligible based on patient's age to complete this topic Insurance MEDICARE SOLUTIONS MEDICARE SOLUTIONS Care Teams Superintendent Maintenance Airports Relationship Specialty Start Date End Date Juan Gonzalez MD [address] [address] PCP - General 01/25/13
--- OUTSIDE RECORDS SUMMARY | 2024-09-05 17:31 | XMS_ITS | Continuity of Care Document ---
Author Organization [facility] Address [address] [place] [address] [place] [address] Phone Care Team Providers Care Nurses Superintendent Name Role Phone Hammad Anna Unavailable Unavailable Procedures Procedure Date Office/outpatient Visit, Est Office/outpatient Visit, Est Eye Exam Established Pt Office/outpatient Visit, Est Office/outpatient Visit, New Advance Directives Directive Yes / No Effective Date File Name No Information Encounters Encounter Description Practice Location Reason(s) For Visit Diagnoses Date Provider Providers Copied on Encounter Office/outpat ient Visit, [facility], [address] [place] [address] [address], [place], [place], [id number], tel:[phone] [facility] No Information 3-200 9 Krishnasamy Hammad. [facility] [address], [facility], . tel:[phone] Referring Provider: Juan Gonzalez MD, [address] [place] [address], [address]. tel:[phone] Office/outpat ient Visit, [facility], [address] [place] [address] [address], [place], [place], [id number], tel:[phone] [facility] No Information 9-200 9 Krishnasamy Hammad. [address] [address], [place], [address], . tel:[phone] Referring Provider: Juan Gonzalez MD, [address] [place] [address], [address]. tel:[phone] [facility], [id number] [place] [address] [address], [place], [place], [id number], tel:[phone] [facility] [place] No Information 9 Shoshana Bournehil. [address], [place], [place], [facility], . tel:[phone] Referring Provider: Juan Gonzalez MD, [address] [place] [address], [address]. tel:[phone] Office/outpat ient Visit, [facility], [address], [place], [place], [id number], tel:[phone] [facility] [place] No Information 8 Delaney Welch. [address] [facility] , [address], [place], [place], [facility], . tel:[phone] Referring Provider: Juan Gonzalez MD, [address] [place] [address], [address]. tel:[phone] Office/outpat ient Visit, [facility], [address] [place] [address] [address], [place], [place], [id number], tel:[phone] [facility] [place] No Information 8 Delaney Tomlin [address] , [address], [place], [place], [facility], . tel:[phone] Referring Provider: Juan Gonzalez MD, [address] [place] [address], [address]. tel:[phone] Family History Family Member Type Diagnosis Age At Onset No Information Payers Payer name Insurance type Covered republican ID Marimar jama(s) [facility] CI [id number] Social History Type Description Quantity Date Captured Comments Sex Female Smoking Status No Information Chief Complaint And Reason For Visit No Information Reason For Referral Reason For Referral No Information History Of Present Illness Encounter Date Complaint History Of Prese nt Illness No Information Functional Status Date Functional Assessmen t No Information Instructions Date Instruction Additional Infor mation No Information Assessments Type Assessment Date No Information Patient Care Teams Name Effective Dates (start - stop) Status Members No Information
--- OUTSIDE RECORDS SUMMARY | 2024-09-05 17:31 | XMS_ITS | Encounter Summary ---
Author Organization [facility] Address [address] [place] [address] Care Team Providers Care Lock Corner Machine Operator Name Role Phone Juan Gonzalez MD Primary Care Provider [phone] Encounter Details Date Type Department Care Team (Late st Contact Info) Description 09/11/2023 Orders Only [facility] Health Information Management [address] [place] [address] Scanning, Provider Social History Tobacco Use Types Packs/Day Years Used Date Smoking Tobacco: Former Cigarettes Q uit: 06/13/2002 Smokeless Tobacco: Never Alcohol Use Standard Drinks/Week Comments Yes 1 (1 standard drink = 0.6 oz pur e alcohol) occassionally Comments Unknown Sex and Gender Information Value Date Recorded Sex Assigned at Not on file 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 Gender Identity Not on file Sexual Orientation Not on file documented as of this encounter Plan of Treatment Not on file documented as of this encounter Procedures Procedure Name Priority Date/Time Associated Diagnosis Comments SCAN - RADIOLOGY/IMAGING 09/11/2023 documented in this encounter Results * SCAN - RADIOLOGY/IMAGING (09/11/2023) Anatomical Region Laterality Modality Other us Provider Scanning Edited Result - Final documented in this encounter Visit Diagnoses Not on filedocumented in this encounter Care Teams Lock Corner Machine Operator Relationship Specialty Start Date End Date Juan Gonzalez MD [address] [address] PCP - General 01/25/13 documented as of this encounter
== END 2024-09-05 16:03 | disposition home or self-care (01) ==
PROVIDERS: PCP Family Medicine; Visit Provider Family Medicine
DX: N18.32 Chronic kidney disease, stage 3b (principal)
CPT/HCPCS: 36415; 80048